=== PATIENT | male | born 1970 | race Caucasian/White ===

== ENCOUNTER 2016-11-28 18:12 | Emergency (ER) | payer OTHER ==
[2016-11-28 18:18] VITALS: BP 152/96
[2016-11-28 19:50] LABS: BASOPHIL % 0.5 % (0-2); PLATELET COUNT 213 x10^3mcL (130-400)
== END 2016-11-28 21:33 | disposition home or self-care (01) ==
LOC: ED 18:12
PROVIDERS: Emergency Medicine
DX: S22.060A Wedge compression fracture of T7-T8 vertebra, initial encounter for closed fracture (principal); G31.89 Other specified degenerative diseases of nervous system; X58.XXXA Exposure to other specified factors, initial encounter; Y93.89 Activity, other specified; Y92.89 Other specified places as the place of occurrence of the external cause; Y99.8 Other external cause status
CPT/HCPCS: 72072; J1885

== ENCOUNTER 2019-11-26 20:42 | Emergency (ER) | payer OTHER, SELFPAY ==
[~2019-11-26] VITALS: Ht 162.6 cm; Wt 74.8 kg
[2019-11-26 21:05] VITALS: Ht 162.6 cm; Wt 74.8 kg
[2019-11-26 21:41] LABS: BASOPHIL % 0.2 % (0-2); PLATELET COUNT 201 x10^3mcL (130-400); RED CELL DISTRIBUTION WIDTH 13.1 % (11.5-14.5)
[2019-11-26 22:05] LABS: CHLORIDE SERUM 101 mmol/L (98-107); CREATININE SERUM 1.1 mg/dL (0.7-1.3); GFR1 > 60 mL/min; GLUCOSE SERUM 113 mg/dL (74-106); POTASSIUM SERUM 3.9 mmol/L (3.5-5.1); SODIUM SERUM 137 mmol/L (136-145)
[2019-11-26 22:10] LABS: ALBUMIN 3.8 g/dL (3.4-5.0); ALKALINE PHOSPHATASE 106 U/L (46-116); ALT/SGPT 55 U/L (16-63); AST/SGOT 50 U/L (15-37); BILIRUBIN TOTAL 0.48 mg/dL (0.20-1.00); C REACTIVE PROTEIN 5.3 mg/dL (<=0.9)
[2019-11-26 22:11] LABS: TOTAL PROTEIN, SERUM 8.7 g/dL (6.4-8.2)
[2019-11-26 22:19] LABS: UA SPECIFIC GRAVITY 1.025 (1.005-1.035); microscopic required? YES; urine erythrocyte 2+ (NEGATIVE)
[2019-11-27 01:07] VITALS: BP 106/71
== END 2019-11-27 01:07 | disposition home or self-care (01) ==
LOC: ED 20:42
PROVIDERS: Emergency Medicine
DX: A41.9 Sepsis, unspecified organism (principal); J02.9 Acute pharyngitis, unspecified; Z20.828 Contact with and (suspected) exposure to other viral communicable diseases
CPT/HCPCS: 85378; J7030; Q0092